=== PATIENT | male | born 1995 | race Caucasian/White ===

== ENCOUNTER 2017-02-23 09:44 | Emergency (ER) | payer BC ==
[~2017-02-23] VITALS: Ht 177.8 cm; Wt 61.4 kg
[2017-02-23] MEDS ORDERED: DIAZEPAM 5 MG TABLET PO ONE (10:45)
[2017-02-23 12:08] VITALS: BP 146/89
== END 2017-02-23 12:10 | disposition home or self-care (01) ==
LOC: EMS 09:46
DX: R25.1 Tremor, unspecified (principal); F11.23 Opioid dependence with withdrawal; G47.00 Insomnia, unspecified; F13.90 Sedative, hypnotic, or anxiolytic use, unspecified, uncomplicated; Z91.030 Bee allergy status
CPT/HCPCS: 93005; 99283

== ENCOUNTER 2017-02-24 13:59 | Emergency (ER) | payer BC ==
[~2017-02-24] VITALS: Ht 177.8 cm; Wt 61.3 kg
[2017-02-24 15:55] VITALS: BP 123/77
== END 2017-02-24 15:59 | disposition home or self-care (01) ==
LOC: EMS 14:02
DX: F11.10 Opioid abuse, uncomplicated (principal); F13.10 Sedative, hypnotic or anxiolytic abuse, uncomplicated; F17.210 Nicotine dependence, cigarettes, uncomplicated; Z91.030 Bee allergy status
CPT/HCPCS: 99283; 99406